=== PATIENT | female | born 1995 | race Caucasian/White ===

== ENCOUNTER 2017-04-17 20:33 | Day surgery (SDC) | payer BC, OTHER | END 2017-04-17 20:39 | disposition home or self-care (01) | LOC: ER/OP 20:33 → ERS 20:33 → ER/OP 20:39 → ERS 20:39 | PROVIDERS: ATTEND Emergency Medicine | DX: Z57.8 Occupational exposure to other risk factors (principal); Q78.0 Osteogenesis imperfecta; Z88.1 Allergy status to other antibiotic agents; Z88.0 Allergy status to penicillin; Z88.8 Allergy status to other drugs, medicaments and biological substances; Z91.048 Other nonmedicinal substance allergy status ==

== ENCOUNTER 2017-06-04 13:06 | Outpatient (CLI) | payer BC | END 2017-06-04 13:07 | disposition home or self-care (01) | LOC: BICRAD 13:06 | PROVIDERS: ATTEND Family Medicine | DX: M54.9 Dorsalgia, unspecified (principal); M43.9 Deforming dorsopathy, unspecified | CPT/HCPCS: 72072 ==

== ENCOUNTER 2024-01-06 10:49 | Outpatient (CLI) | payer BC | END 2024-01-06 10:50 | disposition home or self-care (01) | LOC: BICRAD 10:49 | PROVIDERS: ATTEND Family Medicine | DX: R05.9 Cough, unspecified (principal); Q78.0 Osteogenesis imperfecta; M54.6 Pain in thoracic spine; M54.2 Cervicalgia; M41.9 Scoliosis, unspecified | CPT/HCPCS: 71046; 72040; 72072 ==

== ENCOUNTER 2025-02-27 08:59 | Outpatient (CLI) | payer BC | END 2025-02-27 09:00 | disposition home or self-care (01) | LOC: SCSRAD 08:59 | PROVIDERS: ATTEND Nurse Practitioner Family | DX: M79.672 Pain in left foot (principal); R07.9 Chest pain, unspecified | CPT/HCPCS: 71046 ==